=== PATIENT | female | born 1985 | race Caucasian/White ===

== ENCOUNTER → 2020-04-20 09:49 | Outpatient (CLI) | payer OTHER, SELFPAY ==
--- NOTE | ~2020-04-20 | MR_ITS ---
EXAMINATION: MR brain/brain stem wo con DATE: 04/20/2020 10:24 INDICATION: Migraine headache without aura. Not intractable without status migrainosus. TECHNIQUE: Magnetic resonance imaging (MRI) of the brain and brainstem was performed without intraven ous contrast. Sequences included sagittal and axial T1-weighted FSE, axial diffusion-weighted FS EPI, axial T2*-weighted GRE, axial T2-weighted FLAIR Propeller, and axial T2-weighted Propeller. Apparent diffusion coefficient (ADC) maps were created. COMPARISON: None. FINDINGS: There is no intracranial hemorrhage, acute infarction, or abnormal intracranial mass lesion . The ventricles are normal in size. The paranasal sinuses are clear. The orbits are normal. The mast oid air cells are normal. IMPRESSION: 1. Normal brain. Reviewed, dictated and finalized at location A. R CAP MACHINE OPERATOR IMPRESSION: 1. Normal brain.
== END ==
PROVIDERS: PCP Internal Medicine
DX: G43.009 Migraine without aura, not intractable, without status migrainosus (principal)
CPT/HCPCS: 70551

== ENCOUNTER → 2021-02-07 13:34 | Outpatient (CLI) | payer OTHER, SELFPAY ==
--- NOTE | ~2021-02-07 | XR_ITS ---
EXAMINATION: XR scoliosis survey DATE: 02/07/2021 14:00 INDICATION: Scoliosis. Low back pain. TECHNIQUE: Anteroposterior and lateral views of the entire spine standing were obtained. COMPARISON: None. FINDINGS: Right femoral head stands 5 mm higher than the left. There are 12 pairs of ribs. There are 5 nonrib-bearing lumbar segments. There is no segmentation anomaly. There is 10 degrees dextroscolios is from T5 to T9 by the Kennedy method. There is 25 degrees levoscoliosis from T9 to L4. IMPRESSION: 1. Scoliosis. Reviewed, dictated and finalized at location A. ING MANAGER IMPRESSION: 1. Scoliosis.
== END ==
PROVIDERS: PCP Internal Medicine
DX: M41.9 Scoliosis, unspecified (principal); M54.6 Pain in thoracic spine
CPT/HCPCS: 72082

== ENCOUNTER 2023-10-17 13:34 | Outpatient (CLI) | payer OTHER, SELFPAY ==
--- NOTE | ~2023-10-17 | CT_ITS ---
CT of the Abdomen and Pelvis: Indication: Diverticulitis Technique: 2.5 mm axial scans were obtained through the abdomen and pelvis following intravenous adm inistration of 100 cc of Omnipaque 350. Dose reduction technique was used on this scan by utilizing a utomated exposure control and iterative reconstruction technique. The dose-length product (DLP) was 2 90.63 mGy-cm. Findings: Scans through the lung bases are unremarkable. The liver, spleen, pancreas, gallbladder, adrenals and kidneys are within normal limits. No evidence of aortic aneurysm. No lymphadenopathy. No bowel obstruction or bowel wall thickening. There is no evidence to suggest acute appendicitis. Images through the pelvis were performed. Urinary bladder unremarkable. Status post hysterectomy. No pelvic mass seen. Small amount of pelvic ascites present. Impression: Small amount of pelvic ascites, nonspecific. No other distinct abnormality identified. Reviewed, dictated and finalized at [facility]. Impression: Small amount of pelvic ascites, nonspecific. No other distinct abnormality iden tified.
== END 2023-10-17 13:35 | disposition home or self-care (01) ==
LOC: ANHIMG 13:35
PROVIDERS: PCP Internal Medicine; Visit Provider Internal Medicine
DX: K57.92 Diverticulitis of intestine, part unspecified, without perforation or abscess without bleeding (principal)
CPT/HCPCS: 74177; Q9967

== ENCOUNTER 2024-07-07 00:41 | Day surgery (SDC) | payer OTHER, SELFPAY ==
[2024-07-05 11:48] VITALS: BMI 22.3
--- OUTSIDE RECORDS SUMMARY | 2024-07-07 00:44 | XMS_ITS | Clinical Summary ---
Author Organization [facility] Address [address] [place] [address] Care Team Providers Care Store Cashier Name Role Phone Lillie Ya MD Primary Care Provider Source Comments [facility],non-owned Affiliates and Associated Physician Practices is amultiple site organization consisting of ambulatory clinics and hospital sitesin [place], [place], [place] and [place]. This disclosure is being madepursuant to the Care Everywhere program and may not contain all information available regarding this patient. Last updated [facility] Allergies No known active allergies Medications * Be aware that medications may not be up to date on this document. Alwaysverify current medications with the patient. vitamin D3 (CHOLECALCIFERO L) 25 MCG (1000 UNITS) tablet Take 1 (one) tablet by mouth once daily Active Multiple Vitamin (MULTIVITAMIN ADULT PO) Take 1 tablet by mouth once daily Active rimegepant (Nurtec) 75 MG tabletIndicatio ns:Migraine Take 75 mg by mouth once daily as needed for Migraine Reasons: Migraine Headache 8 tablet 11 08/14/2023 Active botulinum toxin type A 100 units/1 ml (Botox) 100 UNIT injection Inject 155 units IM every 3 months. For chronic migraine 2 Each 3 08/14/2023 Active FLUoxetine (PROzac) 20 MG capsule Take 1 (one) capsule by mouth every morning 12/19/2023 Active ALPRAZolam (Xanax) 0.25 MG tablet Take 1 (one) tablet by mouth 2 times daily as needed Active Active Problems Problem Noted Date Diagnosed Date SHAQ (generalized anxiety disorder) 04/13/2024 Menorrhagia with regular cycle 12/21/2019 Overview (01/24/2022): Added automatically from request for surgery [id number] Migraine 06/23/2019 Overview (01/24/2022): Last Assessment & Plan: Did not tolerated amitriptyline well due to fatigue/constipation. Has reduced caffeine use, increased water intake, improved sleep and started using blue filtering glasses which has seemed to help 'tremendously' Still has a day or two of migraines around ovulation/menses, but eletriptan has worked well for this. I would continue this management and call if change in headaches as fall approaches. RTC in 3 months Anxiety 08/14/2018 Overview (01/24/2022): Last Assessment & Plan: -currently managed by psych, she is interested in potentially switching the management over to our office -has tried CBT, meditation, etc and will likely need daily anti anxiety medication year round or at least intermittently throughout the years -advised she try fetzima as her psych has already sent over a prescription for this -RTC in 6 weeks for follow-up and to see how she is tolerating the medication -can consider prozac in future if necessary or even switching to SNRI -start hydroxyzine as needed for acute anxiety sx in the setting she does not want to take xanax Advised that her psychiatrist will need to continue rx xanax as health and safety tech cannot fill this Attention deficit hyperactiv ity disorder (ADHD), predominantly inattentive type 08/14/2018 Overview (01/24/2022): Last Assessment & Plan: Managed by psychiatry Taking adderall 5 mg PRN Advised her psychiatrist will need to continue prescribing this Low bone mass 06/04/2018 Nephrocalcinosis 06/04/2018 Nephrolithiasis 06/04/2018 Pain, female pelvic 08/14/2017 Overview (01/24/2022): Added automatically from request for surgery [id number] Depression 08/19/2016 Osteopenia 08/19/2016 Osteoporosis 05/13/2014 Encounters Date Type Department Care Team Description 04/13/2024 1:30 PM PROPOSAL REVIEW ANALYST Procedure visit [facility] - ENT [address], [address] [place] [address] Gray Pineda MD Chronic migraine without aura without status migrainosus, not intractable from Last 3 Months Immunizations Immunization Administration Dates Next Due INFLUENZA VACCINE, TRIV. (AF LURIA, FLUZONE TRIVALENT; 6MO+) (IIV3) 12/12/2020 Covid Rabixo primary monoval ent 12+ yr 0.3mL Purple cap 12/14/2020,04/24/2020,04/03/2020 DTaP VACCINE IM (6wk-6yrs) 03/30/2018 INFLUENZA VACCINE 12/18/2022,,12/18/2020,2017 INFLUENZA VACCINE, CELL CULT URE, QUADR. (FLUCELVAX QUADRIVALENT; 6MO+) (CCIIV4) 12/06/2021 INFLUENZA VACCINE, CELL CULT URE, TRIV. (FLUCELVAX TRIVALENT; 6MO+), 0.5 ML (CCIIV3) 11/26/2023,12/06/2021 INFLUENZA VACCINE, QUADR. (A FLURIA, FLUZONE QUADRIVALENT; 6MO+) (IIV4) 11/30/2012 INFLUENZA VACCINE, QUADR. (F LUZONE; FLULAVAL; FLUARIX; AFLURIA QUADRIVALENT; 6MO+), 0.5 ML (IIV4) 12/15/2020,12/09/2019,11/16/2018 TDAP (7yrs+) 04/30/2013 Family History Medical History Relation Name Comments Dementia Father Diabetes - Type 2 Father Hypertension Father Osteoporosis Father Arthritis - Rheumatoid Mother Hypertension Mother Relation Name Status Comments Father Mother Social History Tobacco Use Types Packs/Day Years Used Date Smoking Tobacco: Never Smokeless Tobacco: Never Tobacco Cessation:Counseling Given: Not Answered Alcohol Use Standard Drinks/Week Comments Yes 0 (1 standard drink = 0.6 oz pur e alcohol) social Comments Unknown Sex and Gender Information Value Date Recorded Sex Assigned at Not on file Legal Sex Female 6:59 AM PROPOSAL REVIEW ANALYST Gender Identity Not on file Sexual Orientation Not on file Last Filed Vital Signs Vital Sign Reading Time Taken Comments Blood Pressure 114/76 04/13/2024 1:31 PM PROPOSAL REVIEW ANALYST Pulse 76 04/13/2024 1:31 PM PROPOSAL REVIEW ANALYST Temperature 36.7 C (98 F) 01/07/2024 10:23 AM CDT Respiratory Rate - - Oxygen Saturation 98% 01/07/2024 10:23 AM CDT Inhaled Oxygen Concentration - - Weight 60.8 kg (134 lb) 04/13/2024 1:31 PM PROPOSAL REVIEW ANALYST Height 163.8 cm (5' 4.5 ) 04/13/2024 1:31 PM PROPOSAL REVIEW ANALYST Body Mass Index 22.65 04/13/2024 1:31 PM PROPOSAL REVIEW ANALYST Plan of Treatment Upcoming Encounters Date Type Department Care Team (Late st Contact Info) Description 07/13/2024 12:45 PM CDT Procedure visit [facility] - ENT [address], [address] [place] [id number] Gray Pineda MD [address] DEPT [place] [address] Health Maintenance Due Date Last Done Comments LIPID TESTING 1985 PAP SMEAR 1985 HIV SCREENING 1998 HEPATITIS C SCREENING 03/16/2001 HEPATITIS B VACCINE (1 of - 19+ 3-dose series) 2002 COVID-19 VACCINE ( season) 2023 12/14/2020, 04/24/2020, 04/03/2020 DEPRESSION SCREENING 03/10/2024 MAMMOGRAM 03/24/2025 03/24/2023, 03/24/2023 DTAP/TDAP/TD VACCINES (3 - Td or Tdap) 03/30/2028 03/30/2018, 04/30/2013 ZOSTER VACCINE (1 of 2) 2033 INFLUENZA VACCINE Completed 11/26/2023, , 12/24/2021, Additional history exists HIB VACCINE Aged Out No longer eligi ble based on patient's age to complete this topic HPV VACCINE Aged Out No longer eligi ble based on patient's age to complete this topic MENINGOCOCCAL (Group B) VACCINE SHARED DECISION-MAKING Aged Out No longer eligible based on patient's age to complete this topic MENINGOCOCCAL GROUPS A/C/Y/W VACCINE Aged Out No longer eligible based on patient's age to complete this topic PNEUMOCOCCAL VACCINE Aged Out No long er eligible based on patient's age to complete this topic Procedures Procedure Name Priority Date/Time Associated Diagnosis Comments PROC ANDRADE BOTOX MIGRAINE Routine 04/13/2024 1:53 PM PROPOSAL REVIEW ANALYST Chronic migraine without aura without status migrainosus, not intractable from Last 3 Months Results * PROC ANDRADE BOTOX MIGRAINE (04/13/2024 1:53 PM PROPOSAL REVIEW ANALYST) Narrative Gray Pineda MD - 04/13/2024 1:53 PM PROPOSAL REVIEW ANALYST Gray Pineda MD 04/13/2024 2:58 PM Procedure date: 04/13/2024 Procedure performed: Botox injection Pre Op Dx: Chronic Migraines (G43.07) Post Op Dx: same Attending: Dr. Pineda Anesthesia: None EBL: minimal Indications for procedure: The patient has been unresponsive to conventional methods of treatments such as more than 2 attempted medications, physical therapy, and other methods used to control their migraines. The migraines cause significant disability in both work and personal life. The patient has been undergoing Botox injections for the headaches. The patient reports that she underwent a Botox injection 3 months ago, and this round has worked well. They feel a decrease in the number of migraines. They have went from more than 15 migraines per month to 6 migraines after botox. The severity of the migraines has also decreased and patients quality of life and disability has improved. After 2.5 months, they can notice the Botox starting to lose effectiveness, and have an increase in number and intensity. Initial History of Headaches: Duration of illness: many years Number of headache days per month: more than 15 Number or headache hours per day: more than 4 Pain severity and symptoms: pain is severe and no associated symptoms Disability due to headache/migraine: yes, significant ER visits due to headache/migraine: none Treatment plan: Patient has tried and failed multiple preventative medications and has decided to proceed with botox as the next modality of therapy. Headache/migraine characteristics: Patient reported the headache is unilateral and pulsing in quality with severe pain and causing avoidance of routine physical activities. Symptoms during headache: Patient gets nausea, photophobia, and phonophobia Patient has chronic daily headaches and has significant disability due to the headaches which have been refractory to standard and usual conventional therapy. When untreated or unsuccessfully treated the headache lasts up to 72 hours. Procedure in detail: Jun Fitzpatrick is a 39 year old female with a history of unresponsive migraines who presented to clinic for Botox injection. The risks, benefits, alternatives, and indications of the procedure were discussed, and the patient understood these and wished to proceed. Botox was injected into the frontalis, corrugators, and procerus muscles, as well as multiple restorationist locations bilaterally and superior-mid posterior neck, and occipital region. Total amounts included 5 units on each side in the corrugators, 5 units in the procerus midline, 10 units into the frontalis on each side, 20 units into the temporalis on each side, 15 units into the occipitalis on both sides, 10 units on each side into the cervical paraspinals, and 15 units into each side into the trapezius for a total of 155 units. 45 units discarded in presence of nursing staff. Lot number: [id number] for both bottles. Obtained from our stock (buy/bill). [facility] Allergan: [id number] I, Dr. Pineda, was present for the entire procedure and can verify that the patient tolerated the procedure well. us Gray Pineda MD PROCEDURE/MINOR SURGICAL O RDERABLES Final Result from Last [address] [facility] [place] [facility]: [facility] [address] [place] [address] [facility] [place] Address: [facility] [id number] [place] [address] Care Teams Store Cashier Relationship Specialty Start Date End Date Lillie Ya MD PCP - General 07/20/19
--- OUTSIDE RECORDS SUMMARY | 2024-07-07 00:44 | XMS_ITS ---
Author Organization [facility] Address [address] [facility] [address] [place] [address] Care Team Providers Care Automatic Spreader Operator Name Role Phone Mariaelena Mcallister Unavailable [phone] Lillie Torres Unavailable [phone] REASON FOR VISIT ADHD Follow Up Social History Sex Assigned At : Social History Observation Description Sex Assigned At Female Encounters Encounter Location Date Provider Diagnosis [facility] [address] [facility] [address] [place] [address] 10/17/2023 Lillie Torres Plan Of Treatment No Information Progress Notes * JUN FITZPATRICKDOB:1985 ( 39 yo F)Acc No.[id number]:10/17/2023 Patient: JUN HALE Provider: PATIENCE RODRIGUEZ :1985 A ge:38 Y S ex:Female Date:10/17/2023 Address:[address] [place] [address], [id number] Subjective: * Chief Complaints: * 1 . ADHD Follow Up. * Medical History: Objective: * Vitals: Assessment: Plan: * Treatment: * Billing Information: * Visit Code: * Procedure Codes: * Electronic signature of PATIENCE Glez on 07/07/2024 at 12:44 AM CDT Sign off status: Pending * Provider: PATIENCE RODRIGUEZ Date: 0 10/17/2023 Generated for Printi ng/Faxing/eTransmitting on: 07/07/2024 12:44 AM CDT
--- OUTSIDE RECORDS SUMMARY | 2024-07-07 00:44 | XMS_ITS | Data Portability ---
Author Organization [facility], Telehealth (patients home) Address [address] [place] [address] Assessment Encounter Date Assessment Date Assessment LastModified by Organization Details LastModified Time 06/10/2023 06/10/2023 Patient presents with anxiety. History and exam indicate moderate anxiety. Katty also has some concerns in regards to her ADHD. PHQ2=0 GAD7=13 Moderate Face to face 40 minutes [email or web address] Not available 06/10/2023 16:00:06 Plan of Treatment Reminders Order Date Submit Date Provider Last Modified By Organization Details Last Modified Time Details Appointments None record ed. Lab None record ed. Referral None record ed. Procedures None record ed. Surgeries None record ed. Imaging None record ed. Medication Orders None record ed. Patient TargetsNo targets recorded. Patient Instructions Encounter Date Encounter Id Patient Instructions Last Modified By Organization Details Last Modified Time 06/10/2023 [id number] anxiety disorder : care instructions [email or web address] Not available 06/10/2023 16:00:10 learning about anxiety disorders [email or web address] Not available 06/10/2023 16:00:10 Reason for Referral None Reported. Problems Name Problem SNOMED Code Status Onset Date Resolution Date Notes Provider Name and Address Organization Details Recorded Time Anxiety [id number] Active 024 Alethea Maharaj CNM, PMHNP-BC [address], [place], [address], [facility] 15:36:38 Problem Notes None recorded. Procedures Surgical History Date Name Laterality Status Provider Name and Address Organization Details Recorded Time 03/10/19 24 Most Recent Mammogram completed Alethea Maharaj CNM, PMHNP-BC [address], [place], [address], [facility] 06/10/2023 15:09:56 09/08/19 Date of Last Pap Smear completed Alethea Maharaj CNM, [facility] [address], [place], [address], [facility] 06/10/2023 15:09:23 hysterectomy completed Alethea Maharaj CNM, [facility] [address], [place], [address], [facility] 06/10/2023 15:17:36 Imaging Results None recorded. Procedure Notes None recorded. Medical Equipment None Reported. Allergies No known drug allergies Medications Name Sig Start Date Stop Date Status Note LastModified by Organization Details LastModified Time prednisone 10 mg tablet 06/09 completed Not Available Not Available Not Available ondansetron HCl 4 mg tablet TAKE 1 TABLET BY MOUTH THREE TIMES DAILY NEEDED FOR NAUSEA 06/09 completed Not Available Not Available Not Available alprazolam 0.25 mg tablet TAKE 1 TABLET BY MOUTH EVERY DAY NEEDED FOR ANXIETY active Not Available Not Available No t Available promethazin e 25 mg tablet TAKE 1 TABLET BY MOUTH EVERY 8 HOURS NEEDED FOR NAUSEA OR VOMITING active Not Available Not Available No t Available sertraline 25 mg tablet TAKE 1/2 TABLET BY MOUTH DAILY 06/09 completed Not Available Not Available Not Available lorazepam 1 mg tablet TAKE 1/2 TO 1 TABLET BY MOUTH DAILY NEEDED FOR FLYING active Not Available Not Available No t Available methylpredn isolone 4 mg tablets in a dose pack FOLLOW PACKAGE DIRECTION S active Not Available Not Available No t Available hydroxyzine HCl 10 mg tablet TAKE 1 TO 2 TABLETS BY MOUTH UP TO TWICE DAILY active Not Available Not Available No t Available bupropion HCl XL 150 mg 24 hr tablet, extended release TAKE 1 TABLET BY MOUTH EVERY MORNING active Not Available Not Available No t Available escitalopra m 5 mg tablet TAKE 1 TABLET BY MOUTH EVERY DAY active Not Available Not Available No t Available Vitals Date Recorded Body height Body mass index (BMI) Body weight Heart rate Systolic blood pressure Diastolic blood pressure Provider Name and Address Organization Details Last Updated DateTime 4 162.56 cm 23.6 kg/m2 33570.5 9 g 74 /min 131 mm[Hg] 88 mm[Hg] Alethea Maharaj CNM, [facility]- [address], [place], [address], [facility] 15:08:18 Social History Question Answer Notes LastModified by Organizat ion Details LastModified Time Tobacco Smoking Status Unknown If Ever Smoked Alethea Maharaj CNM, [facility]- [address], [place], [address], [facility] 06/10/2023 15:15:54 What Is Your Level Of Alcohol Consumption? Occasional [email or web address] Information not available 06/10/2023 How Many Times Per Week Do You Exercise? 3-4 Times Per Week Information not available 06/10/2023 Do You Feel Stressed (tense, Restless, Nervous, Or Anxious, Or Unable To Sleep At Night)? [id number] [email or web address] Information not available 06/10/2023 Sex: Unknown Functional Status Question Answer Note LastModified by Organization D etails LastModified Time What is your exercise level? Moderate [email or web address] Information not available 06/10/2023 Mental Status None recorded. Family History Relationship Description Onset Age of this Age Resolved Age Notes LastModified by Organization Details LastModified Time Brother Attention deficit hyperactivit y disorder Not available 06/09 15:12:01 Brother Substance abuse [email or web address] Not available 2023 15:12:24 Brother Bipolar disorder [email or web address] Not available 2023 15:12:33 Paternal Grandfather Cerebrovascu lar accident [email or web address] Not available 04/2023 15:13:29 Paternal Grandmother Cerebrovascu lar accident Not available 04/2023 15:13:29 Father Depressive disorder [email or web address] Not available 2023 15:13:58 Father Diabetes mellitus [email or web address] Not available 2023 15:15:22 Sister Anxiety [email or web address] Not available 06/10/2023 15:14:26 Mother Diabetes mellitus [email or web address] Not available 2023 15:15:22 Medical History Condition Response Kidney or Bladder Problems Y ADD/ADHD Y Anxiety Disorder Y Depression/ depression Y Headaches Y Osteoporosis Gynecological History Statement/Question Response Abnormal Pap N Date of Last Pap Smear 09/07/2022 Current Control Method Hysterectom y Most Recent Mammogram 03/10/2023 Sexually Active? Y Obstetrics History GPAL:G 2 P 0 0 0 2 Type Value Living 2 Total 2 Past Encounters Encounter ID Performer Location Encounter Start Date Encounter Closed Date Diagnosis/Indication Diagnosis SNOMED-CT Code Diagnosis ICD10 Code Diagnosis Note [id number] Alethea Maharaj CNM, [facility]- Main Office [address] [place] [address] 06/10/2023 15:05:42 06/10/2023 16:01:08 Anxiety 97348781 F41.1 presently taking Lexapro 2.5mg. recommend increase lexapro to 5mg dailyconti nue Wellbutrin xl 150mgrecom mend therapy for ADHD. Informatio n on [facility] therapy[facility] urn to office in 1 month for follow up on Lexapro 5mg Health Concerns Section Related Observation LastModified by Organization Detai ls LastModified Time None Recorded Concern Status LastModified by Organization Details LastModified Time None Recorded Advance Directives Directive None Recorded Payers Encounter Date Sequence Insurance Name Policy Number Policy Echols Covered Member ID Echols Member ID Guarantor Name 06/10/2023 1 [facility] [id number] Katty Magana [id number] Katty Magana Notes Date Note Type Note Provider Name and Address Organization Details Recorded Time 4 text/html Met with Katty today in office. Katty is presenting to care due to loosing her psychiatrist and needing to establish care with a provider to follow anxiety and prescribe her medications. Psychiatric diagnoses- depression/anxiety following first child. Anxiety, ADHD. Current medications taking Lexapro 2.5 mg, Wellbutrin XL 150 mg daily. Has had previous trials of medications with Zoloft, Adderall, Ritalin, and Vyvanse. Katty has never had a psychiatric hospitalization. Denies any history of suicide attempts or self-harm. No history of physical, emotional, or sexual abuse. Denies history of head injuries denies history of seizures. Only uses alcohol on occasion. Denies any drug use.Katty states her mood to be stable, anxious . Denies any feelings of worthlessness, hopelessness, helplessness, or guilt. She does struggle with racing thoughts. Energy is low despite good sleep. States sleep to be fine, getting 7 hours of sleep at night, uses 1 mg of melatonin for sleep. Denies any SI or HI. Or visual hallucinations. denies any auditory hallucinationsKatty works full-time in oncology research. 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 She lives with her Cali and 2 daughters ages 10 and 13. List her Cali and sister as her support.Family history psychiatric-father depression, sister- anxiety &depression, brother-drug addiction, bipolar, ADHD.No family history of completed suicidesPHQ2=[id number] Moderate Alethea Maharaj, JOSE, PMHNP- [address], [place], [address], [facility] - [facility] 06/10/2023 16:00:53 OBGyn Episode No OBEpisode recorded.
--- OUTSIDE RECORDS SUMMARY | 2024-07-07 00:44 | XMS_ITS | Patient Health Record ---
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 Role Phone Mariaelena Mcallister Unavailable [phone] Jose Desai Unavailable [phone] Lillie Torres Unavailable [phone] Migration, Provider Unavailable Unavailable Allergies No Known Allergies Results Component Value Reference Range Notes UDT Reviewed date:09/29/2023 04:22:10 PM Interpretation: Performing Lab: Notes/Report: THC neg 0 - 50 ng/ml Cocaine neg 0 - 300 ng/ml Amphetamine neg 0 - 1000 ng/ml Buprenorphine (BUP) neg 0 - 10 ng/ml Secobarbital (Bar) neg 0 - 300 ng/ml Oxazepam (BZO) neg 0 - 300 ng/ml 7-dsqdxrltxn-2,4-qviguumr-3,3-diphenylpyrrolidine (VIVEK P) neg 0 - 300 ng/ml Methamphetamine (MET) neg 0 - 1000 ng/ml Methylenedioxymethamphetamine (MDMA) neg 0 - 500 ng/ml Morphine (MOP 300/[id number]) neg 0 - 300 ng/ml Methadone (MTD) neg 0 - 300 ng/ml Phencyclidine (PCP) neg 0 - 25 ng/ml Nortriptyline (TCA) neg 0 - 1000 ng/ml Oxycodone neg 0 - 300 ng/ml x neg 0 - 300 ng/ml UDT Reviewed date:09/16/2023 03:36:39 PM Interpretation: Performing Lab: Notes/Report: THC n 0 - 50 ng/ml Cocaine n 0 - 300 ng/ml Amphetamine n 0 - 1000 ng/ml Buprenorphine (BUP) n 0 - 10 ng/ml Secobarbital (Bar) n 0 - 300 ng/ml Oxazepam (BZO) n 0 - 300 ng/ml 3-fwlbjzjkyn-1,4-knckklvq-0,3-diphenylpyrrolidine (VIVEK P) n 0 - 300 ng/ml Methamphetamine (MET) n 0 - 1000 ng/ml Methylenedioxymethamphetamine (MDMA) n 0 - 500 ng/ml Morphine (MOP 300/[id number]) n 0 - 300 ng/ml Methadone (MTD) n 0 - 300 ng/ml Phencyclidine (PCP) n 0 - 25 ng/ml Nortriptyline (TCA) n 0 - 1000 ng/ml Oxycodone n 0 - 300 ng/ml x n 0 - 300 ng/ml Reason For Referral No Information Medications Medication SIG (Take, Route, Frequency, Duration) Notes Start Date End Date Status Vitamin D 50 MCG (1999) 1 tablet Orally Once a day Active predniSONE 10 MG Oral Not -Taking hydrOXYzine HCl 10 MG Oral Not-Taking ALPRAZolam 0.25 MG Oral N ot-Taking LORazepam 1 MG Oral Not-T aking Promethazine HCl 25 MG Oral Not-Taking busPIRone HCl 5 MG 1 tablet Orally Twice a day for 90 days Active Sertraline HCl 25 MG Oral Not-Taking Wellbutrin XL 300 MG 1 tablet in the morning Orally Once a day for 90 days d/c 150 mg dose Active buPROPion HCl ER (XL) 150 MG Oral Not-Taking Ondansetron HCl 4 MG Oral Not-Taking methylPREDNISolone 4 MG Oral Not-Taking Social History Tobacco Use: Social History Observation Description Date Details (start date - stop date) Never Smoker NA - NA Sex Assigned At : Social History Observation Description Sex Assigned At Female Household Question Answer Notes Marital status: Number of adults in household: 2 d aughters Number of children in household: 2 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 Yes with Men only Tobacco Control (Standard) Question Answer Notes Tobacco use: Nonsmoker Additional Findings: Tobacco non-user Current no nsmoker AUDIT-C (Standard) Question Answer Notes Did you have a drink contain ing alcohol in the past year? Yes How often did you have six o r more drinks on one occasion in the past year? Never (0 point) How many drinks did you have on a typical day when you were drinking in the past year? 1 or 2 drinks (0 point) How often did you have a dri nk containing alcohol in the past year? 2 to 4 times a month (2 points) Points 2 Interpretation Positive Problems Problem Type SNOMED Code ICD Code Onset Dates Problem Status W/U Status Risk Notes Problem 97674242 SHAQ (generalized anxiety disorder) (F41.1) Active confirmed Problem 284653860 MDD (major depressive disorder), recurrent episode, mild (F33.0) Active confirmed Problem 88512485 Unable to concentrate (R41.840) Active confirmed Vital Signs Heart Rate 78 /min 09/16/2023 Respiratory Rate 16 /min 09/16/2023 Height-cm 165.1 cm 10/17/2023 Blood pressure diastolic 90 mm Hg 09/16/2023 Weight-kg 59.33 kg 10/17/2023 Height 65 in 10/17/2023 Blood pressure systolic 123 mm Hg 09/16/2023 Weight 130.8 lbs 10/17/2023 BMI 21.76 kg/m2 10/17/2023 Encounters Encounter Location Date Provider Diagnosis [facility] [address] [address] 08/01/2023 Jose Desai [facility] [employer] [address] [address] 09/16/2023 Lillie Torres MDD (major depressiv e disorder), recurrent episode, mild F33.0 ; SHAQ (generalized anxiety disorder) F41.1 and Unable to concentrate R41.840 [facility] [employer] [address] [address] 09/29/2023 Jose Desai ADHD (attention deficit hyperactivity disorder), combined type 314.01 [facility] [address] [address] 10/17/2023 Lillie Torres MDD (major depressiv e disorder), recurrent episode, mild F33.0 ; SHAQ (generalized anxiety disorder) F41.1 and Unable to concentrate R41.840 [facility] [place] [place] [id number] [facility] [address] [address] 07/26/2023 Provider Migration [facility] [facility] [address] [place] [address] 07/27/2023 [facility] [address] [facility] [address] [place] [address] 09/17/2023 Lillie Torres MDD (major depressiv e disorder), recurrent episode, mild F33.0 [facility] [address] [facility] [address] [facility] [address] [place] [address] 10/22/2023 Lilliemarily Dyerjarret Assessments Encounter Date Diagnosis (ICD Code) Assessment Notes Treatment Notes Treatment Clinical Notes Section Notes 09/17/2023 MDD (major depressive disorder), recurrent episode, mild (ICD-10 - F33.0) 09/16/2023 SHAQ (generalized anxiety disorder) (ICD-10 - F41.1) Learning About Generalized Anxiety Disorder material was published, Generalized Anxiety Disorder: Care Instructions material was published, Learning About Anxiety Disorders material was published mild major depression - Lexapro 2.5 mg daily - no refill needed may discuss in near future stopping Lexapro if tolerate Buspar - pateint to simplify rx Wellbutrin XL 150 mg daily - no refill needed Anxiety - discuss Buspar and Vistaril Patient has Vistaril 10 mg TID PRN no refill needed discuss and educated on Buspar 5 mg daily for 2 weeks then increase to twice a day with meal Unable to concentrate- schedule GARY- testing r/o ADHD Medication Management and Follow-Up - Plan: - Schedule follow-up appointments every 2-3 months and PRN to monitor the patient's response to the medication regimen. - Reinforce the importance of avoiding recreational drug use due to potential neurotoxicity and interactions with prescribed medications. educated on all medications, benefits, side effects and risk, and educated on depression, anxiety, and ADHD, mood d/o and educated on compliance of medications, metabolic and movement d/o education appointment's, continue therapy discussion with patient about course of treatment and patient instructions. education on serotonin syndrome Discussed and educated pt regarding benzodiazepines are generally not intended for prolonged use and that use can cause tolerance, dependence, depression, and associated memory issues including dementias (this list is not exhaustive). Benzodiazepine use is generally not recommended concurrently with pain medications and/or other controlled substances due to educated on all medications, benefits, side effects and risk, and educated on depression, anxiety, and ADHD, mood d/o and educated on compliance of medications, metabolic and movement d/o education appointment is, continue therapy discussion with patient about course of treatment and patient instructions. education on serotonin syndrome SSRI/SNRI side effects discussed including but not limited to, gastric upset, nausea, vomiting, diarrhea and/or constipation, weight changes, sexual side effects including loss of libido, increased suicidal thoughts/behavior s in children and young adults, and serotonin syndrome. http_s://www.nimh .nih.gov/health/t opics/mental-heal th-medications http_s://www.trinity .org/About-Mental -Illness/Treatmen ts/Mental-Health- Medications Recommend decrease/stop cannabis use as it may be negatively impacting mood, motivation, anxiety, sleep, focus; can also contribute to development of psychosis Patient educated on all medications including potential benefits, side effects, risks. Educated on proper dosing schedule and importance of compliance, Buspirone Oral Tablet (BUSPIRONE - ORAL) material was published 09/16/2023 MDD (major depressive disorder), recurrent episode, mild (ICD-10 - F33.0) Preventing Depression From Coming Back: Care Instructions material was published, Learning About Depression material was published mild major depression - Lexapro 2.5 mg daily - no refill needed may discuss in near future stopping Lexapro if tolerate Buspar - pateint to simplify rx Wellbutrin XL 150 mg daily - no refill needed Anxiety - discuss Buspar and Vistaril Patient has Vistaril 10 mg TID PRN no refill needed discuss and educated on Buspar 5 mg daily for 2 weeks then increase to twice a day with meal Unable to concentrate- schedule GARY- testing r/o ADHD Medication Management and Follow-Up - Plan: - Schedule follow-up appointments every 2-3 months and PRN to monitor the patient's response to the medication regimen. - Reinforce the importance of avoiding recreational drug use due to potential neurotoxicity and interactions with prescribed medications. educated on all medications, benefits, side effects and risk, and educated on depression, anxiety, and ADHD, mood d/o and educated on compliance of medications, metabolic and movement d/o education appointment's, continue therapy discussion with patient about course of treatment and patient instructions. education on serotonin syndrome Discussed and educated pt regarding benzodiazepines are generally not intended for prolonged use and that use can cause tolerance, dependence, depression, and associated memory issues including dementias (this list is not exhaustive). Benzodiazepine use is generally not recommended concurrently with pain medications and/or other controlled substances due to educated on all medications, benefits, side effects and risk, and educated on depression, anxiety, and ADHD, mood d/o and educated on compliance of medications, metabolic and movement d/o education appointment is, continue therapy discussion with patient about course of treatment and patient instructions. education on serotonin syndrome SSRI/SNRI side effects discussed including but not limited to, gastric upset, nausea, vomiting, diarrhea and/or constipation, weight changes, sexual side effects including loss of libido, increased suicidal thoughts/behavior s in children and young adults, and serotonin syndrome. http_s://www.nimh .nih.gov/health/t opics/mental-heal th-medications http_s://www.trinity .org/About-Mental -Illness/Treatmen ts/Mental-Health- Medications Recommend decrease/stop cannabis use as it may be negatively impacting mood, motivation, anxiety, sleep, focus; can also contribute to development of psychosis Patient educated on all medications including potential benefits, side effects, risks. Educated on proper dosing schedule and importance of compliance, Buspirone Oral Tablet (BUSPIRONE - ORAL) material was published 09/29/2023 ADHD (attention deficit hyperactivity disorder), combined type (ICD9-CM - 314.01) 10/17/2023 MDD (major depressive disorder), recurrent episode, mild (ICD-10 - F33.0) Preventing Depression From Coming Back: Care Instructions material was published, Learning About Depression material was published mild major depression - will Stop Lexapro 2.5 mg daily - Reporetd had increase Lexapro sweating on higher doses patient reported had pharmgentic testing done hx may discuss in near future stopping Lexapro if tolerate Buspar - pateint to simplify rx Increase Wellbutrin XL 300 mg daily in am - for depression and also help concentration and focus Anxiety - discuss Buspar and Vistaril- continue to have Anxiety BEEN TAKING BUSPAR DAILY Patient has Vistaril 10 mg TID PRN no refill needed discuss and educated on Buspar 5 mg daily increase to twice a day with meal Unable to concentrate- GARY- testing completed and reviewed not congruent with test results and Self rating scales no ADHD dxn Medication Management and Follow-Up - Plan: - Schedule follow-up appointments every 1-3 months and PRN to monitor the patient's response to the medication regimen. - Reinforce the importance of avoiding recreational drug use due to potential neurotoxicity and interactions with prescribed medications. educated on all medications, benefits, side effects and risk, and educated on depression, anxiety, and ADHD, mood d/o and educated on compliance of medications, metabolic and movement d/o education appointment's, continue therapy discussion with patient about course of treatment and patient instructions. education on serotonin syndrome Discussed and educated pt regarding benzodiazepines are generally not intended for prolonged use and that use can cause tolerance, dependence, depression, and associated memory issues including dementias (this list is not exhaustive). Benzodiazepine use is generally not recommended concurrently with pain medications and/or other controlled substances due to educated on all medications, benefits, side effects and risk, and educated on depression, anxiety, and ADHD, mood d/o and educated on compliance of medications, metabolic and movement d/o education appointment is, continue therapy discussion with patient about course of treatment and patient instructions. education on serotonin syndrome SSRI/SNRI side effects discussed including but not limited to, gastric upset, nausea, vomiting, diarrhea and/or constipation, weight changes, sexual side effects including loss of libido, increased suicidal thoughts/behavior s in children and young adults, and serotonin syndrome. http_s://www.nimh .nih.gov/health/t opics/mental-heal th-medications http_s://www.trinity .org/About-Mental -Illness/Treatmen ts/Mental-Health- Medications Recommend decrease/stop cannabis use as it may be negatively impacting mood, motivation, anxiety, sleep, focus; can also contribute to development of psychosis Patient educated on all medications including potential benefits, side effects, risks. Educated on proper dosing schedule and importance of compliance, Buspirone Oral Tablet (BUSPIRONE - ORAL) material was published 10/17/2023 SHAQ (generalized anxiety disorder) (ICD-10 - F41.1) Learning About Generalized Anxiety Disorder material was published, Generalized Anxiety Disorder: Care Instructions material was published, Learning About Anxiety Disorders material was published mild major depression - will Stop Lexapro 2.5 mg daily - Reporetd had increase Lexapro sweating on higher doses patient reported had pharmgentic testing done hx may discuss in near future stopping Lexapro if tolerate Buspar - pateint to simplify rx Increase Wellbutrin XL 300 mg daily in am - for depression and also help concentration and focus Anxiety - discuss Buspar and Vistaril- continue to have Anxiety BEEN TAKING BUSPAR DAILY Patient has Vistaril 10 mg TID PRN no refill needed discuss and educated on Buspar 5 mg daily increase to twice a day with meal Unable to concentrate- GARY- testing completed and reviewed not congruent with test results and Self rating scales no ADHD dxn Medication Management and Follow-Up - Plan: - Schedule follow-up appointments every 1-3 months and PRN to monitor the patient's response to the medication regimen. - Reinforce the importance of avoiding recreational drug use due to potential neurotoxicity and interactions with prescribed medications. educated on all medications, benefits, side effects and risk, and educated on depression, anxiety, and ADHD, mood d/o and educated on compliance of medications, metabolic and movement d/o education appointment's, continue therapy discussion with patient about course of treatment and patient instructions. education on serotonin syndrome Discussed and educated pt regarding benzodiazepines are generally not intended for prolonged use and that use can cause tolerance, dependence, depression, and associated memory issues including dementias (this list is not exhaustive). Benzodiazepine use is generally not recommended concurrently with pain medications and/or other controlled substances due to educated on all medications, benefits, side effects and risk, and educated on depression, anxiety, and ADHD, mood d/o and educated on compliance of medications, metabolic and movement d/o education appointment is, continue therapy discussion with patient about course of treatment and patient instructions. education on serotonin syndrome SSRI/SNRI side effects discussed including but not limited to, gastric upset, nausea, vomiting, diarrhea and/or constipation, weight changes, sexual side effects including loss of libido, increased suicidal thoughts/behavior s in children and young adults, and serotonin syndrome. http_s://www.nimh .nih.gov/health/t opics/mental-heal th-medications http_s://www.trinity .org/About-Mental -Illness/Treatmen ts/Mental-Health- Medications Recommend decrease/stop cannabis use as it may be negatively impacting mood, motivation, anxiety, sleep, focus; can also contribute to development of psychosis Patient educated on all medications including potential benefits, side effects, risks. Educated on proper dosing schedule and importance of compliance, Buspirone Oral Tablet (BUSPIRONE - ORAL) material was published 09/16/2023 Unable to concentrate (ICD-10 - R41.840) mild major depression - Lexapro 2.5 mg daily - no refill needed may discuss in near future stopping Lexapro if tolerate Buspar - pateint to simplify rx Wellbutrin XL 150 mg daily - no refill needed Anxiety - discuss Buspar and Vistaril Patient has Vistaril 10 mg TID PRN no refill needed discuss and educated on Buspar 5 mg daily for 2 weeks then increase to twice a day with meal Unable to concentrate- schedule GARY- testing r/o ADHD Medication Management and Follow-Up - Plan: - Schedule follow-up appointments every 2-3 months and PRN to monitor the patient's response to the medication regimen. - Reinforce the importance of avoiding recreational drug use due to potential neurotoxicity and interactions with prescribed medications. educated on all medications, benefits, side effects and risk, and educated on depression, anxiety, and ADHD, mood d/o and educated on compliance of medications, metabolic and movement d/o education appointment's, continue therapy discussion with patient about course of treatment and patient instructions. education on serotonin syndrome Discussed and educated pt regarding benzodiazepines are generally not intended for prolonged use and that use can cause tolerance, dependence, depression, and associated memory issues including dementias (this list is not exhaustive). Benzodiazepine use is generally not recommended concurrently with pain medications and/or other controlled substances due to educated on all medications, benefits, side effects and risk, and educated on depression, anxiety, and ADHD, mood d/o and educated on compliance of medications, metabolic and movement d/o education appointment is, continue therapy discussion with patient about course of treatment and patient instructions. education on serotonin syndrome SSRI/SNRI side effects discussed including but not limited to, gastric upset, nausea, vomiting, diarrhea and/or constipation, weight changes, sexual side effects including loss of libido, increased suicidal thoughts/behavior s in children and young adults, and serotonin syndrome. http_s://www.nimh .nih.gov/health/t opics/mental-heal th-medications http_s://www.trinity .org/About-Mental -Illness/Treatmen ts/Mental-Health- Medications Recommend decrease/stop cannabis use as it may be negatively impacting mood, motivation, anxiety, sleep, focus; can also contribute to development of psychosis Patient educated on all medications including potential benefits, side effects, risks. Educated on proper dosing schedule and importance of compliance, Buspirone Oral Tablet (BUSPIRONE - ORAL) material was published 10/17/2023 Unable to concentrate (ICD-10 - R41.840) mild major depression - will Stop Lexapro 2.5 mg daily - Reporetd had increase Lexapro sweating on higher doses patient reported had pharmgentic testing done hx may discuss in near future stopping Lexapro if tolerate Buspar - pateint to simplify rx Increase Wellbutrin XL 300 mg daily in am - for depression and also help concentration and focus Anxiety - discuss Buspar and Vistaril- continue to have Anxiety BEEN TAKING BUSPAR DAILY Patient has Vistaril 10 mg TID PRN no refill needed discuss and educated on Buspar 5 mg daily increase to twice a day with meal Unable to concentrate- GARY- testing completed and reviewed not congruent with test results and Self rating scales no ADHD dxn Medication Management and Follow-Up - Plan: - Schedule follow-up appointments every 1-3 months and PRN to monitor the patient's response to the medication regimen. - Reinforce the importance of avoiding recreational drug use due to potential neurotoxicity and interactions with prescribed medications. educated on all medications, benefits, side effects and risk, and educated on depression, anxiety, and ADHD, mood d/o and educated on compliance of medications, metabolic and movement d/o education appointment's, continue therapy discussion with patient about course of treatment and patient instructions. education on serotonin syndrome Discussed and educated pt regarding benzodiazepines are generally not intended for prolonged use and that use can cause tolerance, dependence, depression, and associated memory issues including dementias (this list is not exhaustive). Benzodiazepine use is generally not recommended concurrently with pain medications and/or other controlled substances due to educated on all medications, benefits, side effects and risk, and educated on depression, anxiety, and ADHD, mood d/o and educated on compliance of medications, metabolic and movement d/o education appointment is, continue therapy discussion with patient about course of treatment and patient instructions. education on serotonin syndrome SSRI/SNRI side effects discussed including but not limited to, gastric upset, nausea, vomiting, diarrhea and/or constipation, weight changes, sexual side effects including loss of libido, increased suicidal thoughts/behavior s in children and young adults, and serotonin syndrome. http_s://www.nimh .nih.gov/health/t opics/mental-heal th-medications http_s://www.trinity .org/About-Mental -Illness/Treatmen ts/Mental-Health- Medications Recommend decrease/stop cannabis use as it may be negatively impacting mood, motivation, anxiety, sleep, focus; can also contribute to development of psychosis Patient educated on all medications including potential benefits, side effects, risks. Educated on proper dosing schedule and importance of compliance, Buspirone Oral Tablet (BUSPIRONE - ORAL) material was published 09/16/2023 Other mild major depression - Lexapro 2.5 mg daily - no refill needed may discuss in near future stopping Lexapro if tolerate Buspar - pateint to simplify rx Wellbutrin XL 150 mg daily - no refill needed Anxiety - discuss Buspar and Vistaril Patient has Vistaril 10 mg TID PRN no refill needed discuss and educated on Buspar 5 mg daily for 2 weeks then increase to twice a day with meal Unable to concentrate- schedule GARY- testing r/o ADHD Medication Management and Follow-Up - Plan: - Schedule follow-up appointments every 2-3 months and PRN to monitor the patient's response to the medication regimen. - Reinforce the importance of avoiding recreational drug use due to potential neurotoxicity and interactions with prescribed medications. educated on all medications, benefits, side effects and risk, and educated on depression, anxiety, and ADHD, mood d/o and educated on compliance of medications, metabolic and movement d/o education appointment's, continue therapy discussion with patient about course of treatment and patient instructions. education on serotonin syndrome Discussed and educated pt regarding benzodiazepines are generally not intended for prolonged use and that use can cause tolerance, dependence, depression, and associated memory issues including dementias (this list is not exhaustive). Benzodiazepine use is generally not recommended concurrently with pain medications and/or other controlled substances due to educated on all medications, benefits, side effects and risk, and educated on depression, anxiety, and ADHD, mood d/o and educated on compliance of medications, metabolic and movement d/o education appointment is, continue therapy discussion with patient about course of treatment and patient instructions. education on serotonin syndrome SSRI/SNRI side effects discussed including but not limited to, gastric upset, nausea, vomiting, diarrhea and/or constipation, weight changes, sexual side effects including loss of libido, increased suicidal thoughts/behavior s in children and young adults, and serotonin syndrome. https://www.nimh. nih.gov/health/to pics/mental-healt h-medications https://www.[facility]inity. org/About-Mental- Illness/Treatment s/[place]-Pfgtnd-Q edications Recommend decrease/stop cannabis use as it may be negatively impacting mood, motivation, anxiety, sleep, focus; can also contribute to development of psychosis Patient educated on all medications including potential benefits, side effects, risks. Educated on proper dosing schedule and importance of compliance, Buspirone Oral Tablet (BUSPIRONE - ORAL) material was published mild major depression - Lexapro 2.5 mg daily - no refill needed may discuss in near future stopping Lexapro if tolerate Buspar - pateint to simplify rx Wellbutrin XL 150 mg daily - no refill needed Anxiety - discuss Buspar and Vistaril Patient has Vistaril 10 mg TID PRN no refill needed discuss and educated on Buspar 5 mg daily for 2 weeks then increase to twice a day with meal Unable to concentrate- schedule GARY- testing r/o ADHD Medication Management and Follow-Up - Plan: - Schedule follow-up appointments every 2-3 months and PRN to monitor the patient's response to the medication regimen. - Reinforce the importance of avoiding recreational drug use due to potential neurotoxicity and interactions with prescribed medications. educated on all medications, benefits, side effects and risk, and educated on depression, anxiety, and ADHD, mood d/o and educated on compliance of medications, metabolic and movement d/o education appointment's, continue therapy discussion with patient about course of treatment and patient instructions. education on serotonin syndrome Discussed and educated pt regarding benzodiazepines are generally not intended for prolonged use and that use can cause tolerance, dependence, depression, and associated memory issues including dementias (this list is not exhaustive). Benzodiazepine use is generally not recommended concurrently with pain medications and/or other controlled substances due to educated on all medications, benefits, side effects and risk, and educated on depression, anxiety, and ADHD, mood d/o and educated on compliance of medications, metabolic and movement d/o education appointment is, continue therapy discussion with patient about course of treatment and patient instructions. education on serotonin syndrome SSRI/SNRI side effects discussed including but not limited to, gastric upset, nausea, vomiting, diarrhea and/or constipation, weight changes, sexual side effects including loss of libido, increased suicidal thoughts/behavior s in children and young adults, and serotonin syndrome. http_s://www.nimh .nih.gov/health/t opics/mental-heal th-medications http_s://www.trinity .org/About-Mental -Illness/Treatmen ts/Mental-Health- Medications Recommend decrease/stop cannabis use as it may be negatively impacting mood, motivation, anxiety, sleep, focus; can also contribute to development of psychosis Patient educated on all medications including potential benefits, side effects, risks. Educated on proper dosing schedule and importance of compliance, Buspirone Oral Tablet (BUSPIRONE - ORAL) material was published Plan Of Treatment Future Test Test Name Order Date ADHD Testing 09/16/2023 Insurance Providers Payer Name Payer Address Payer Phone Subscriber Number Group Number Insured Name Patient Relationship to Insured Coverage Start Date Coverage End Date [address] [place] [address] [id number] [id number] FITZPATRICK Self - patient is the insured Medical (General) History Medical History History ICD Code Past Psychiatric History: Anxiety Disord er abdominal aortic aneurysm: No atrial fibrillation: No chronic fatigue syndrome: No essential tremor: No hyperlipidemia: No hypertension: No Parkinson's disease: No restless leg syndrome: No stroke: No subdural hematoma: No type 1 diabetes mellitus: No type 2 diabetes mellitus: No vitamin B12 deficiency: No vitamin D deficiency: Yes Surgical History Surgery Date(Month/Year) hysterectomy
--- NOTE | 2024-07-07 11:04 | WPDANESEPPF ---
Anes - Initial Pre Proc Eval Procedure: Operation Date: 07/07/24 12:30 Proposed Procedures p Colonoscopy - Avery Gillis MD Date/Time: 07/07/24 11:04 Surgeon: Avery Gillis MD Pre Op Diagnosis: Abnormal findings on diagnostic imaging of other p Patient Data Age: 39 Gender: F Height: 1.63 m Weight: 59 kg Allergies Allergy/AdvReac Type Severity Reaction Status Date / Time No Known Drug Allergies Allergy Mild Unknown Verified 07/07/24 11:07 Home Medications ?Medication ?Instructions ?Recorded ?Confirmed ?Type fluoxetine 20 mg capsule (Prozac) 20 mg PO DAILY 06/30/24 07/05/24 History Patient hx anesthesia problems: none Family hx anesthesia problems: none Results Review: All pre-operative results and documents have been reviewed as part of the pre-operative evaluation. [facility] Past Medical History Medical History (Updated 06/30/24 @ 11:07 by Avery Gillis MD) Abnormal CT scan, colon Constipation Diarrhea Kidney stones Osteopenia Surgical History Surgical History History of hysterectomy Family History Family History Father Diabetes mellitus Mother Hypertension High cholesterol Social History Social History Smoking status: Never smoker Alcohol intake: current Drinks per week: 2 Alcohol use details: wine Substance use type: does not use Do You Feel Safe in your Home?: Yes Lack of Transportation: No Lack of Food: Never True Current Housing: I Have Housing Concerned About Future Housing: No Difficulty Paying Gas/Electric Bills: No Difficulty Paying for Meds: No Currently Unemployed: No Education: Master's Degree or Higher Difficulty w/ Childcare or Family Care: No Living arrangements: with family Occupation/Education: occupation Additional occupation/education comments: Nurse practitioner Spiritual care concerns: No Anes - Eval Final PreProcedure Day of Procedure 07/07/24 11:04 Patient weight: normal Heart: regular rate and rhythm Lungs: clear to auscultation Airway: Mallampati scale class II Neurological: alert and oriented Last oral intake: >/= 8 hours ASA classification: II Emergent: no Anesthetic plan: proceed Anesthesia type and monitoring: general GIVS and standard monitoring Results Review: All pre-operative results and documents have been reviewed as part of the pre-operative evaluation. Informed Consent: The patient's anesthetic plan and its attendant risks and benefits were discussed with the patient/family/POA. Questions were solicited and answers provided to the satisfaction of the patient/family/POA.
[2024-07-07 11:08] VITALS: BP 119/81; PULSE 85; RESP 20; TEMP 36.2; O2SAT 98
[2024-07-07] MEDS: LACTATED RINGERS 1,000 ML 150 ML IV CONT (11:20)
--- NOTE | 2024-07-07 11:47 | WPDHPUPDATE1 ---
History and Physical Update Update Date/Time: 07/07/24 11:47 History and Physical has been reviewed, including an updated exam of the patient. There are NO changes in the patient's condition. Risks, benefits, and alternatives have been discussed and questions answered. Patient agrees to proceed with procedure.
[2024-07-07 12:03] VITALS: BP 106/64; PULSE 74; RESP 22; O2SAT 100
[2024-07-07 12:13] VITALS: BP 104/55; PULSE 79; RESP 20; O2SAT 100
== END 2024-07-07 12:31 | disposition home or self-care (01) ==
PROVIDERS: PCP Internal Medicine; Visit Provider Internal Medicine Gastroenterology
PROC: 0DJD8ZZ Inspection of Lower Intestinal Tract, Via Natural or Artificial Opening Endoscopic (ICD-10-PCS; CPT 45378; principal; 2024-07-07 12:30)
DX: R93.3 Abnormal findings on diagnostic imaging of other parts of digestive tract (principal); K64.8 Other hemorrhoids; M85.88 Other specified disorders of bone density and structure, other site; Z98.890 Other specified postprocedural states; Z87.442 Personal history of urinary calculi
CPT/HCPCS: 45378; J2704; J7120